=== PATIENT | male | born 1980 | race Caucasian/White ===

== ENCOUNTER 2020-01-12 08:58 | Emergency (ER) | payer OTHER, SELFPAY ==
[2020-01-12 09:27] VITALS: BP 154/85; PULSE 87; RESP 18; TEMP 37.2; O2SAT 98; BMI 40.1
--- NOTE | 2020-01-12 09:46 | HMH.EDUTC ---
[facility] [place] Disposition Clinical Impression: Gastroenteritis Disposition: Home, Self-Care Condition on Discharge: Good Instructions: Viral Gastroenteritis Additional Instructions: Drink plenty of fluids. Take tylenol for pain or fever. Take the medications as directed. Follow up with your regular doctor. GO TO THE ER FOR ANY WORSENING SYMPTOMS Prescriptions: Ondansetron [Zofran 4mg ODT] 4 mg PO Q8HP PRN #10 tab.rapdis PRN Reason: Nausea Transmission Status: Received by [id number] Referrals: PCP,No [Primary Care Provider] - Forms: Work/School Release Time of Disposition: 09:48 Medical Decision Making - Medical Records Medical records reviewed: No: I reviewed the patient's medical records. - William Inquiry Pt receiving controlled substance: No Vital Signs: 01/12/20 09:27 01/12/20 10:08 Temperature 98.9 F 98.9 F Temperature Source Oral Oral Pulse Rate 87 Pulse Rate [Radial] 87 Respiratory Rate 18 18 Blood Pressure 154/85 H Blood Pressure [Right Arm] 154/85 H Blood Pressure Mean [Right Arm] 108 Blood Pressure Source Automatic Cuff Blood Pressure Source [Right Arm] Automatic Cuff Blood Pressure Position Sitting Blood Pressure Position [Right Arm] Sitting 02 Sat by Pulse Oximetry 98 Oxygen Delivery Method Room Air Room Air Orders (Tests/Meds): ORDERS Category Date Time Status Covid-19 Nasal PCR ([facility]) Routine Lab 01/12/20 09:30 Received [facility] HPI - General Stated complaint: vomiting Time Seen by Provider: 01/12/20 09:30 Mode of Arrival: Ambulatory Source of Information: Patient Limitations: No Limitations Description of Symptoms (Recalled from Triage Doc. by RN): covid test HEENT Symptoms (Recalled from RN notes): No Resp Symptoms (Recalled from RN notes): No Skin Symptoms (Recalled from RN notes): No MS Symptoms (Recalled from RN notes): No Functional Status (Recalled from RN notes): wnl - History of Present Illness Provider Complaint: He states that he woke up with n/v this morning. He denies any other symptoms. He needs a covid test before he is allowed back to work. - Related Data Previous Rx's Medication Instructions Recorded Ondansetron [Zofran 4mg ODT] 4 mg PO Q8HP PRN #10 tab.rapdis 10/30/20 Allergies Allergy/AdvReac Type Severity Reaction Status Date / Time No Known Allergies Allergy Verified 01/12/20 09:30 - Worker's Comp Is this a Worker's Comp case?: No [facility] History - Hepatitis A Screen Drug use history?: No High risk sexual behaviors?: No History of sexually transmitted infection?: No Currently employed?: No Childcare worker?: No Do you have indoor plumbing?: Yes Do you have electricity?: Yes Attestation statement:: This patient has been screened for Hepatitis A risk factors. I have reviewed the patient's past medical history: Yes - Social History Smoking Status: Current every day smoker Tobacco Type: cigarettes # Packs/Day (cigarettes): 1 Alcohol Intake: never Occupational Status: employed ROS Obtained: Yes All systems reviewed & no additional complaints - Constitutional Constitutional: Denies chills, Denies fever(s), Reports poor appetite, Denies malaise - Eyes Eyes: Denies eye discharge - ENT Ears, Nose, Mouth, and Throat: Denies dizziness, Denies otalgia, Denies sore throat - Cardiovascular Cardiovascular: Denies chest pain - Respiratory Respiratory: No chest congestion, No cough - Gastrointestinal Gastrointestingal: Reports: nausea, vomiting. Denies: abdominal pain, diarrhea Physical Exam - General General appearance: alert, in no apparent distress - Head Head exam: atraumatic, normocephalic, normal inspection - Eye Eye exam: Present: normal appearance, PERRL, EOMI - ENT ENT exam: Present: normal exam, normal oropharynx, mucous membranes moist, TM's normal bilaterally, normal external ear exam - Neck Neck exam: Present: normal inspection, full ROM, trachea midli
[2020-01-12 10:08] VITALS: BP 154/85; PULSE 87; RESP 18; TEMP 37.2; O2SAT 98
== END 2020-01-12 10:08 | disposition home or self-care (01) ==
PROVIDERS: Emergency Provider Nurse Practitioner Family
DX: Z20.828 Contact with and (suspected) exposure to other viral communicable diseases (principal); K52.9 Noninfective gastroenteritis and colitis, unspecified; F17.210 Nicotine dependence, cigarettes, uncomplicated
CPT/HCPCS: 99201; U0003

== ENCOUNTER 2020-01-17 08:02 | Emergency (ER) | payer MEDICAID, SELFPAY ==
[2020-01-17 08:08] VITALS: BP 116/71; PULSE 91; RESP 18; TEMP 36.6; O2SAT 100; BMI 38.0
--- NOTE | 2020-01-17 08:20 | HMH.EDNECK ---
ED Disposition Clinical Impression: Cervical paraspinal muscle spasm Disposition: Home, Self-Care Condition on Discharge: Good Instructions: DI for Neck Pain Prescriptions: Ibuprofen [Ibuprofen 800mg Tablet] 800 mg PO TIDP PRN #20 tab PRN Reason: Moderate Pain Transmission Status: Pending to [facility] methocarbamoL [Robaxin 750mg Tab] 750 mg PO TID 10 Days #30 tab Transmission Status: Pending to [facility] Referrals: PCP,No [Primary Care Provider] - - Critical Care Critical Care Time: No Attestation: On 01/17/20, the high probability of a clinically significant, sudden or life threatening deterioration of the following system(s) required my full and direct attention, intervention and personal management. The time I documented below is in addition to time spent performing reported procedures but includes the following listed in this critical care notation. Medical Decision Making - Medical Records Medical records reviewed: Yes: I reviewed the patient's medical records. - William Inquiry Pt receiving controlled substance: No Vital Signs: 01/17/20 08:08 Temperature 97.9 F Temperature Source Oral Pulse Rate [Right Brachial] 91 H Respiratory Rate 18 Blood Pressure [Right Arm] 116/71 Blood Pressure Mean [Right Arm] 86 Blood Pressure Source [Right Arm] Automatic Cuff Blood Pressure Position [Right Arm] Sitting 02 Sat by Pulse Oximetry 100 Oxygen Delivery Method Room Air Medical Decision Narrative: 39-year-old male presented to the emergency department with neck pain. Findings are consistent with cervical spasm. Patient has no midline tenderness. Does not meet imaging criteria for the cervical spine. Patient be treated symptomatically. Needs follow-up with PCP. Given strict return precautions. Verbalized understanding. Neck Pain/Injury HPI - General Chief Complaint: Neck Pain/Injury Stated Complaint: neck pain, unknown origin Time Seen by Provider: 01/17/20 08:15 Limitations: No Limitations Description of Symptoms (Recalled from ER Triage Doc. by RN): Patient reports left sided neck pain x3 weeks, pt reports it hurts more when he turns his head to the left, denies any known injury. - History of Present Illness HPI Narrative: This is a 39-year-old male presenting with left-sided neck pain. Patient has had the symptoms for the last 3 weeks. He states that he got it while working in his last job. He was apparently picking up heavy parts and lifting them above his head. He felt like he strained his neck at the time. He has had persistent left lateral pain since then. He feels like it is spasming. He denies any new injuries. Is not having any fevers or chills. No headache, change in vision or focal weakness. Denies any chest pain or shortness of breath. No abdominal pain or vomiting. No other injuries were sustained. - Related Data Previous Rx's Medication Instructions Recorded Ibuprofen [Ibuprofen 800mg 800 mg PO TIDP PRN #20 tab 01/17/20 Tablet] methocarbamoL [Robaxin 750mg Tab] 750 mg PO TID 10 Days #30 tab 01/17/20 Allergies Allergy/AdvReac Type Severity Reaction Status Date / Time No Known Allergies Allergy Verified 01/17/20 08:12 [facility] History - Hepatitis A Screen Drug use history?: No High risk sexual behaviors?: No History of sexually transmitted infection?: No Currently employed?: No Childcare worker?: No Do you have indoor plumbing?: Yes Do you have electricity?: Yes Attestation statement:: This patient has been screened for Hepatitis A risk factors. I have reviewed the patient's past medical history: Yes - Social History Smoking Status: Current every day smoker Tobacco Type: cigarettes # Packs/Day (cigarettes): 1 Alcohol Intake: never Occupational Status: employed ROS Obtained: Yes All systems reviewed & no additional complaints - Constitutional Constitutional: Denies chills, Denies fever(s) - ENT Ears, Nos
[2020-01-17 08:34] VITALS: BP 111/69; PULSE 89; RESP 17; TEMP 36.6; O2SAT 100
== END 2020-01-17 08:37 | disposition home or self-care (01) ==
PROVIDERS: Emergency Provider Emergency Medicine
DX: M54.2 Cervicalgia (principal); M62.838 Other muscle spasm; F17.210 Nicotine dependence, cigarettes, uncomplicated
CPT/HCPCS: 99281

== ENCOUNTER 2020-03-01 12:06 | Emergency (ER) | payer OTHER, SELFPAY ==
[2020-03-01 12:20] VITALS: BP 128/82; PULSE 90; RESP 15; TEMP 36.2; O2SAT 96; BMI 44.4
--- NOTE | 2020-03-01 12:23 | HMH.EDUTC ---
[facility] [place] Clinical Impression: Nausea Disposition: Home, Self-Care Condition on Discharge: Good Instructions: DI for Nausea -- Adult Prescriptions: ondansetron HCL [Ondansetron 8mg tab*] 8 mg PO TIDP PRN 10 Days #20 tab PRN Reason: Nausea Transmission Status: Pending to [facility] Referrals: PCP,No [Primary Care Provider] - Time of Disposition: 12:27 Medical Decision Making - William Inquiry Pt receiving controlled substance: No [facility] [place] - General Stated complaint: Nausea Time Seen by Provider: 03/01/20 12:23 - History of Present Illness Provider Complaint: Nausea X 3 hours. No vomiting or diarrhea. Left work early so needs an excuse. Onset (ago): hour(s) (3) Location: abdomen Relieving factors: none Exacerbating factors: none Associated symptoms: nausea/vomiting Treatments prior to arrival: none - Related Data Previous Rx's Medication Instructions Recorded Ibuprofen [Ibuprofen 800mg 800 mg PO TIDP PRN #20 tab 01/17/20 Tablet] methocarbamoL [Robaxin 750mg Tab] 750 mg PO TID 10 Days #30 tab 01/17/20 ondansetron HCL [Ondansetron 8mg 8 mg PO TIDP PRN 10 Days #20 tab 03/01/20 tab*] Allergies Allergy/AdvReac Type Severity Reaction Status Date / Time No Known Allergies Allergy Verified 01/17/20 08:12 [facility] History - Hepatitis A Screen Attestation statement:: This patient has been screened for Hepatitis A risk factors. I have reviewed the patient's past medical history: Yes - Social History Smoking Status: Current every day smoker Tobacco Type: cigarettes # Packs/Day (cigarettes): 1 Alcohol Intake: never Occupational Status: employed ROS Obtained: Yes All systems reviewed & no additional complaints - Gastrointestinal Gastrointestingal: Reports: nausea Physical Exam - General General appearance: alert, in no apparent distress - Head Head exam: normocephalic - Eye Eye exam: Present: PERRL - ENT ENT exam: Present: normal oropharynx - Chest Chest inspection: Present: normal inspection, symmetric chest wall rise - Respiratory Respiratory exam: Present: normal lung sounds bilaterally - Cardiovascular Cardiovascular exam: Present: regular rate, normal rhythm - Abdominal Exam Abdominal exam: Present: soft. Absent: tenderness - Neurological Exam Neurological exam: Present: alert, oriented X3 - Psychiatric Psychiatric exam: Present: normal affect, normal mood - Skin Skin exam: Present: warm, dry
[2020-03-01 12:42] VITALS: BP 128/82; PULSE 90; RESP 15; TEMP 36.2; O2SAT 96
== END 2020-03-01 12:43 | disposition home or self-care (01) ==
PROVIDERS: Emergency Provider Physician Assistant
DX: R11.0 Nausea (principal); F17.210 Nicotine dependence, cigarettes, uncomplicated
CPT/HCPCS: 99201